=== PATIENT | male | born 2000 | race African-American/Black ===

== ENCOUNTER 2018-01-18 04:12 | Emergency (ER) | payer MEDICAID ==
[~2018-01-18] VITALS: Ht 170.2 cm; Wt 73.0 kg
[2018-01-18] MEDS ORDERED: SODIUM CHLORIDE 0.9% 1,000 ML IV ONE (08:40)
[2018-01-18] MEDS ORDERED: MORPHINE SULFATE 4 MG/ML CPJ (NOT FOR IM USE) IV STA (08:40)
[2018-01-18] MEDS ORDERED: ONDANSETRON HCL 4MG/2ML VIAL IV STA (08:40)
[2018-01-18] MEDS ORDERED: AZITHROMYCIN 500 MG in DEXT 5% WATER 250 ML IV SCH (09:00)
[2018-01-18] MEDS ORDERED: CEFTRIAXONE 1 G PREMIX 50 ML IV ONE (09:00)
[2018-01-18 09:11] LABS: BASOPHILS % 0.7 % (0.0-2.0); HEMATOCRIT. 41.4 % (42.0-52.0); HEMOGLOBIN. 13.8 g/dL (14.0-18.0); LYMPHOCYTES % 28.4 % (20.0-50.0); MEAN CORPUSCULAR HEMOGLOBIN 29.2 pg (28.0-32.0); MEAN CORPUSCULAR VOLUME 87.5 fL (80.0-94.0); MEAN PLATELET VOLUME 7.1 fl (7.4-10.4); MONOCYTES % 11.1 % (2.0-8.0); NEUTROPHILS % 56.8 % (40.0-76.0); PLATELET 280 x1000/uL (130-400); RED BLOOD CELL COUNT 4.73 mill/uL (4.7-6.1); RED CELL DISTRIBUTION WIDTH 11.4 % (11.6-14.6)
[2018-01-18 09:14] LABS: CHLORIDE 103 mEq/L (98-107)
[2018-01-18 10:08] LABS: PARTIAL THROMBOPLASTIN TIME 23.8 sec (23.4-31.0)
[2018-01-18 10:22] LABS: CLARITY URINE CLEAR (CLEAR); COLOR URINE YELLOW (YELLOW); KETONES URINE NEGATIVE (NEGATIVE); LEUKOCYTE ESTERASE URINE NEGATIVE (NEGATIVE); NITRITE URINE NEGATIVE (NEGATIVE); OCCULT BLOOD URINE NEGATIVE (NEGATIVE); PH URINE 6.5 (4.5-8.0); PROTEIN URINE NEGATIVE (NEGATIVE); SPECIFIC GRAVITY URINE 1.041 (1.005-1.030); UROBILINOGEN URINE 0.2 E.U./dL (0.2-1.0)
[2018-01-18 10:57] VITALS: BP 126/91
[2018-01-20 15:10] LABS: CHLAMYDIA TRACHOMATIS NAA Negative (Negative); NEISSERIA GONORRHOEAE NAA Positive (Negative)
== END 2018-01-18 11:53 | disposition home or self-care (01) ==
LOC: ER 04:12
DX: N48.1 Balanitis (principal); N47.1 Phimosis; E10.21 Type 1 diabetes mellitus with diabetic nephropathy; Z91.010 Allergy to peanuts; Z91.013 Allergy to seafood
CPT/HCPCS: 36415; 80053; 81003; 85025; 85610; 85730; 87077; 87086; 87106; 87491; 87591; 96365; 96366; 96368; 96375; 99285; J0456; J0696; J2270; J2405; J7030; Z7610; J7060; A4315